=== PATIENT | female | born 1950 | race Two or more races ===

== ENCOUNTER 2018-11-02 08:41 | Outpatient (CLI) | payer OTHER | END 2018-11-02 08:46 | disposition home or self-care (01) | LOC: RAD 08:41 | DX: R06.89 Other abnormalities of breathing (principal) ==

== ENCOUNTER → 2019-01-16 | Outpatient (CLI) | payer OTHER | END | disposition home or self-care (01) | LOC: NUCLEAR 13:00 | DX: M81.0 Age-related osteoporosis without current pathological fracture (principal) ==

== ENCOUNTER → 2020-07-25 | Outpatient (CLI) | payer OTHER | END | disposition home or self-care (01) | LOC: RAD 10:32 | PROVIDERS: ATTEND Internal Medicine Cardiovascular Disease | DX: M12.841 Other specific arthropathies, not elsewhere classified, right hand (principal); M12.831 Other specific arthropathies, not elsewhere classified, right wrist ==

== ENCOUNTER 2020-11-07 11:41 | Outpatient (CLI) | payer OTHER ==
[~2020-11-07 11:41] MED LIST: DICLOFENAC POTA50 MG PO
== END 2020-11-07 11:47 | disposition home or self-care (01) ==
LOC: LAB 11:41
PROVIDERS: ATTEND Physical Medicine & Rehabilitation
DX: Z20.828 Contact with and (suspected) exposure to other viral communicable diseases (principal); Z11.59 Encounter for screening for other viral diseases

== ENCOUNTER 2024-08-31 09:19 | Outpatient (CLI) | payer OTHER | END 2024-08-31 09:28 | disposition home or self-care (01) | LOC: RAD 09:19 | PROVIDERS: ATTEND Internal Medicine Cardiovascular Disease | DX: M12.9 Arthropathy, unspecified (principal); M19.90 Unspecified osteoarthritis, unspecified site; M46.47 Discitis, unspecified, lumbosacral region; R10.9 Unspecified abdominal pain ==

== ENCOUNTER 2024-11-15 09:35 | Outpatient (CLI) | payer OTHER | END 2024-11-15 09:50 | disposition home or self-care (01) | LOC: TOM 09:35 | PROVIDERS: ATTEND Internal Medicine Cardiovascular Disease | DX: R10.9 Unspecified abdominal pain (principal) ==

== ENCOUNTER 2024-12-04 05:20 | Day surgery (SDC) | payer OTHER ==
[2024-11-23 09:35] VITALS: BP 123/91
[2024-11-23 09:36] LABS: URINE APPEARANCE Clear; URINE BILIRRUBIN Negative (NEGATIVE); URINE COLOR Yellow; URINE GLUCOSE Negative (NEGATIVE); URINE KETONE Negative (NEGATIVE); URINE LEUKOCYTE Small; URINE NITRATE Negative; URINE PROTEIN Negative (NEGATIVE); URINE UROBILINOGEN 0.2 E.U./dl
[2024-11-23 09:38] LABS: URINE BACTERIA 42.8 uL (0.0-1933); URINE EPITHELIAL CELLS 17.5 uL (0.0-38.8); URINE RBC 24.7 uL (0.0-20.8); URINE WBC 38.2 uL (0.0-23.2)
[2024-11-23 09:41] LABS: URINE BLOOD Trace
[2024-11-23 10:12] LABS: HEMATOCRIT 38.9 % (36.0-45.00); HEMOGLOBIN 12.9 g/dL (12.0-15.00); MEAN CELL VOLUME 78.6 fL (80.00-100.00); PLATELET COUNT 205 K/uL (150-450); RED BLOOD COUNT 4.95 M/uL (4.00-6.00); RED CELL DISTRIBUTION WIDTH 14.2 % (11.5-14.5)
[2024-11-23 10:24] LABS: INR 0.98; PARTIAL THROMBOPLASTIN TIME 29.8 SECONDS (22.0-34.0); PROTHROMBIN TIME 10.7 SECONDS (9.0-11.5)
[2024-11-23 10:38] LABS: ALBUMIN 3.6 gm/dL (3.4-5.0); BILIRUBIN TOTAL 0.51 mg/dL (0.3-1.2); CALCIUM 9.2 mg/dL (8.5-10.1); CREATININE SERUM 0.85 mg/dL (0.55-1.02); GFR 65.2; GLOBULINA 3.3 G/DL (2.4-3.5); POTASSIUM 4.17 mEq/L (3.5-5.1); TOTAL PROTEIN 6.9 gm/dL (6.4-8.2)
[~2024-12-04] VITALS: Ht 160 cm; Wt 77.6 kg
[~2024-12-04 05:20] MED LIST changes: +FAMOTIDINE40 MG PO; +MULTIPLE VITAM1 EAC2 PO; +SYNTHROID75 MCG PO
[2024-12-04] MEDS ORDERED: CIPROFLOXACIN IN 5 % DEXTROSE 400 MG/200 ML PIGGYBAG IV ONE (07:11)
[2024-12-04] MEDS ORDERED: BUPIVACAINE HCL/MPF 0.5% 30ML VIAL ONE (07:11)
[2024-12-04] MEDS ORDERED: LIDOCAINE HCL 1%/EPINEPHRINE 20ML VIAL IJ ONE (07:11)
[2024-12-04] MEDS ORDERED: SUGAMMADEX SODIUM 200 MG/2 ML VIAL IV ONE (10:08)
[2024-12-04] MEDS ORDERED: MORPHINE SULFATE 4 MG/ML VIAL IV ONE (11:20)
== END 2024-12-04 13:17 | disposition home or self-care (01) ==
LOC: CIR.AMB 05:20
PROVIDERS: ATTEND Surgery
DX: K80.10 Calculus of gallbladder with chronic cholecystitis without obstruction (principal); Z88.0 Allergy status to penicillin; M19.90 Unspecified osteoarthritis, unspecified site; E03.8 Other specified hypothyroidism; M85.80 Other specified disorders of bone density and structure, unspecified site

== ENCOUNTER 2025-05-22 12:56 | Outpatient (CLI) | payer OTHER | END 2025-05-22 12:59 | disposition home or self-care (01) | LOC: TOM 12:56 | PROVIDERS: ATTEND Internal Medicine Cardiovascular Disease | DX: R10.9 Unspecified abdominal pain (principal); R31.9 Hematuria, unspecified; J44.9 Chronic obstructive pulmonary disease, unspecified ==